=== PATIENT | female | born 1985 | race Caucasian/White ===

== ENCOUNTER 2016-11-11 05:37 | Day surgery (SDC) | payer OTHER ==
[~2016-11-11] VITALS: Ht 157.5 cm; Wt 53.1 kg
[~2016-11-11 05:37] MED LIST: METHADONE 22 MG/1 ML PO
[2016-11-11 06:56] VITALS: BP 119/56
[2016-11-11 13:00] VITALS: BP 119/64
[2016-11-11 15:30] VITALS: BP 106/64
[2016-11-11 20:53] VITALS: BP 108/64
[2016-11-11 23:21] VITALS: BP 106/57
[2016-11-12 00:09] VITALS: BP 106/57
[2016-11-12 03:59] VITALS: BP 110/62
[2016-11-12 06:48] LABS: HEMATOCRIT 35.2 % (36.0-46.0); MCH 30.4 PG (29.0-34.0); MCHC 33.8 G/DL (30.0-36.0); MEAN PLAT.VOLUME 9.8 uM^3 (9.5-12.4); PLATELET COUNT 195 K/uL (156-360); RBC DIS.WIDTH-CV 12.7 % (11.8-14.6); RBC DIS.WIDTH-SD 41.9 % (39-53); RED BLOOD COUNT 3.91 M/uL (3.80-5.20); WHITE BLOOD COUNT 6.6 K/uL (4.1-10.2)
[2016-11-12 07:45] VITALS: BP 109/68
[2016-11-12] MEDS ORDERED: METHADONE5 MG PO (07:53)
[2016-11-12] MEDS ORDERED: METHADONE10 MG PO (07:53)
[2016-11-12] MEDS ORDERED: MOTRIN800 MG PO (08:20)
== END 2016-11-12 09:30 | disposition home or self-care (01) ==
LOC: SDC 05:37 → 2SOUTH 10:40 → 2EAST 10:40 → ENRESERV 11:42 → SDC 12:29 → 2EAST 12:50 → SDC 16:12 → 2EAST 11-12 09:30
PROVIDERS: Obstetrics & Gynecology
DX: N87.1 Moderate cervical dysplasia (principal); N80.0 Endometriosis of uterus; A63.0 Anogenital (venereal) warts; F11.20 Opioid dependence, uncomplicated; Z83.3 Family history of diabetes mellitus; F41.9 Anxiety disorder, unspecified
CPT/HCPCS: 85027; 88305; 88307; G0378; J0131; J0690; J1100; J1170; J1885; J2250; J2405; J2710; J2765; J3010; J7120